=== PATIENT | male | born 1950 | race Caucasian/White ===

== ENCOUNTER 2020-09-13 12:00 | Emergency (ER) | payer OTHER, MEDICARE ==
--- NOTE | 2020-09-13 12:15 | EDM.PDOC ---
ED HPI GENERAL MEDICAL PROBLEM - General Chief Complaint: General Stated Complaint: R Palm Lac Time Seen by Provider: 09/13/20 12:05 Source of Information: Reports: Patient History Limitations: Reports: No Limitations - History of Present Illness INITIAL COMMENTS - FREE TEXT/NARRATIVE: This patient is a 70 year old male that presents to the ER. Patient reports that he was trimming some bushes with toe trimmer. He reports it was electric and the cord kept coming unplugged, and he kept grabbing the cord, but accidently grabbed the hedger. Patient report laceration to the palm of the right hand. Denies other injuries. Onset: Today Duration: Hour(s): (1) Location: Reports: Upper Extremity, Right Severity: Mild Improves with: Reports: None Worsens with: Reports: None Associated Symptoms: Reports: No Other Symptoms r palm Pain Score (Numeric/FACES): 2 - Related Data Allergies Allergy/AdvReac Type Severity Reaction Status Date / Time No Known Allergies Allergy Verified 09/13/20 12:03 Home Meds: Home Meds . [Unable to Verify Home Med List] 09/13/20 [History] ED ROS GENERAL - Review of Systems Review Of Systems: See Below Constitutional: Reports: No Symptoms Musculoskeletal: Reports: No Symptoms Skin: Reports: Wound (laceration right hand) Neurological: Reports: No Symptoms Psychiatric: Reports: No Symptoms ED EXAM, GENERAL - Physical Exam Exam: See Below Exam Limited By: No Limitations General Appearance: Alert, WD/WN, No Apparent Distress Respiratory/Chest: No Respiratory Distress, Lungs Clear Cardiovascular: Normal Peripheral Pulses, Regular Rate, Rhythm Peripheral Pulses: 2+: Radial (L), Radial (R) Extremities: Normal Inspection, Normal Range of Motion, Non-Tender, No Pedal Edema, Normal Capillary Refill, Other (ROM intact, neurovascular intact. pulses +2, cap refill < 2 sec. Sensory/motor function intact. ) Neurological: Alert, Oriented Psychiatric: Normal Affect, Normal Mood Skin Exam: Warm, Dry, Normal Color, No Rash, Wound/Incision (3 small individual skin tears superficial. 1 laceration at the superficial level, not deep, will not require suturing. Total area is 3cm, lacearion 0.5cm. ) Course - Vital Signs Last Recorded V/S: Last Vital Signs Temp 97.4 F 09/13/20 12:00 Pulse 88 09/13/20 12:00 Resp 16 09/13/20 12:00 BP 145/79 H 09/13/20 12:00 Pulse Ox 98 09/13/20 12:00 - Orders/Labs/Meds Meds: Medications Discontinued Medications Generic Name Dose Route Start Last Admin Trade Name Johana PRN Reason Stop Dose Admin Neomycin/Polymyxin/Bacitracin 1 each 09/13/20 12:15 09/13/20 12:19 Bacitracin/Neomycin/Polymyxin B Oint 0.9 Gm U/D Packet TOP 09/13/20 12:16 1 each ONETIME ONE Administration - Re-Assessments/Exams Free Text/Narrative Re-Assessment/Exam: 09/13/20 12:23 See assessment. No suture needed. Patient reports he is [facility]. Departure - Departure Time of Disposition: 12:15 Disposition: Home, Self-Care 01 Condition: Good Clinical Impression: Laceration - Discharge Information *PRESCRIPTION DRUG MONITORING PROGRAM REVIEWED*: Not Applicable *COPY OF PRESCRIPTION DRUG MONITORING REPORT IN PATIENT DANIE: Not Applicable Instructions: Laceration Care, Adult, [id number] Referrals: PCP,Not In Area [Primary Care Provider] - Forms: ED Department Discharge Additional Instructions: Followup with your primary provider as needed Return to the ER for worsening of condition or any emergent concerns Wash the wound twice a day with soap and water, rinse, pat dry, apply Neosporin, keep covered or clean Tylenol for pain as needed Sepsis Event Note (ED) - Evaluation Sepsis Screening Result: No Definite Risk - Focused Exam Vital Signs: Vital Signs Temp Pulse Resp BP Pulse Ox 09/13/20 12:00 97.4 F 88 16 145/79 H 98 - Assessment/Plan Plan: PLEASE SEE RN NOTE FOR PFS
[2020-09-13] MEDS: Bacitracin/Neomycin/Polymyxin B Oint 0.9 GM U/D Packet TOP ONE (12:19)
== END 2020-09-13 12:33 | disposition home or self-care (01) ==
LOC: CC.ED 12:00
DX: S61.411A Laceration without foreign body of right hand, initial encounter (principal); W27.8XXA Contact with other nonpowered hand tool, initial encounter
CPT/HCPCS: 99282; 99283